=== PATIENT | female | born 1975 | race African-American/Black ===

== ENCOUNTER → 2016-05-26 | Outpatient (CLI) | payer OTHER ==
--- NOTE | 2016-05-26 09:20 | RAD ---
INDICATION:USSNECK/SWELLING NECK LYMPH NODES COMPARISON: None. FINDINGS: Focused ultrasound images are obtained of the left side of the neck. There are some borderline enlarged lymph nodes seen on the left side of the neck with thickened cortex. For example there is one measuring up to 25 x 9 mm IMPRESSION: Multiple borderline enlarged lymph nodes are seen within the left side of the neck. Could be reactive in nature but neoplastic causes are not excluded. A follow-up exam could be obtained in a few weeks to ensure no growth.
== END | disposition home or self-care (01) ==
LOC: US 08:21
PROVIDERS: ATTEND Internal Medicine
DX: R22.1 Localized swelling, mass and lump, neck (principal)
CPT/HCPCS: 76536

== ENCOUNTER → 2016-11-01 | Outpatient (CLI) | payer OTHER ==
--- NOTE | 2016-11-01 09:19 | KCIC ---
EXAM: Neck sonogram. HISTORY: Submandibular lymph node follow-up. TECHNIQUE: Sonographic imaging of the neck was performed. COMPARISON: 05/26/2016. FINDINGS: There are multiple bilateral submandibular lymph nodes, the largest of which on the right measures 2.2 x 2.1 x 1.1 cm and the largest of which on the left measures 2.2 x 2.1 x 0.8 cm. The largest lymph node on the left previously measured 2.5 x 1.5 x 0.9 cm. These lymph nodes demonstrate thickened cortices. IMPRESSION: Enlarged bilateral submandibular lymph nodes with thickened cortices. These are fairly symmetric bilaterally and the largest left lymph node is similar in volume compared to the prior study, allowing for differences in measurement technique. Electronically signed by: Rossy Neal MD (11/01/2016 9:15 AM) [place] [id number]
== END | disposition home or self-care (01) ==
LOC: KCIC US 08:00
PROVIDERS: ATTEND Family Medicine
DX: R59.9 Enlarged lymph nodes, unspecified (principal)
CPT/HCPCS: 76536

== ENCOUNTER 2016-11-27 08:25 | Outpatient (CLI) | payer OTHER ==
[~2016-11-27] VITALS: Ht 172.7 cm; Wt 94.3 kg
[2016-11-27] VITALS (8 sets, daily range): BP systolic 122–140; BP diastolic 81–91
[2016-11-27 09:19] LABS: PROTHROMBIN TIME PATIENT 12.2 SEC (11.7-14.0)
[2016-11-27] MEDS ORDERED: LIDOCAINE 1% / SOD BICARB 8.4% 20 ML VIAL. IJ ONE ×2 (09:52→10:30)
[2016-11-27] MEDS ORDERED: fentaNYL PF VIAL 100 MCG/2 ML VIAL ONE ×2 (10:06→10:24)
[2016-11-27] MEDS ORDERED: MIDAZOLAM HCL/PF 2 MG/2 ML VIAL. ONE (10:06)
[2016-11-27] MEDS ORDERED: MIDAZOLAM HCL/PF 2 MG/2 ML VIAL. IV ONE (10:30)
[2016-11-27] MEDS ORDERED: fentaNYL PF VIAL 100 MCG/2 ML VIAL IV ONE (10:30)
--- NOTE | 2016-11-27 13:37 | RAD ---
Ultrasound-guided biopsy of left submandibular lymph node 11/27/2016 Indication: Persistent left submandibular lymphadenopathy. Discussion: The risks and benefits of the procedure were discussed the patient. Informed consent was obtained. The patient was brought to the IR suite placed in the upright position. A timeout procedure was performed. The left submandibular region was prepped using maximum sterile barrier technique. Ultrasound evaluation demonstrated a noted in the left submandibular region, grossly similar to the appearance is seen on prior ultrasound studies. Once an appropriate site for skin entry been selected 1% lidocaine without epinephrine was administered to the subcutaneous tissues. An automated, 20-gauge core biopsy needle was used to obtain multiple samples, which were divided amongst formalin and RPMI fluid. Manual pressure was held to achieve hemostasis a sterile dressing was applied. Repeat ultrasound demonstrated no evidence of immediate complication. Impression: Technically successful ultrasound-guided biopsy of left submandibular lymph node
--- NOTE | 2016-11-30 08:56 | PATHOLOGY ---
PATHOLOGY REPORT * * * * * * * * FINAL DIAGNOSIS: Left neck lymph node needle biopsy: - Scant segments of fibrous tissue and lymphoid tissue identified. See comment. COMMENT: Sections of the left neck lymph node needle biopsy reveal scant segments of fibrous tissue and lymphoid tissue which primarily consist of fibrous tissue. There is a single small segment of lymphoid tissue. The lymphoid tissue is comprised of a fairly uniform population of small lymphocytes having scant cytoplasm and rounded to slightly irregular hyperchromatic nuclei. There are no lymphoid follicles present. There is no atypical lymphoid large cell infiltrate. There is no evidence of metastatic neoplasm. A portion of the specimen is submitted for marker studies by flow cytometry. The specimen has a viability of 99.6%. T-cells comprise 85% of lymphoid cells and show a CD4/CD8 ratio of about 4.1. NK-cells comprise 1% of lymphoid cells. Mature B-cells comprise 16% of lymphoid cells and are polyclonal with a kappa:lambda ratio of 1.4. To further characterize the lymphoid cells in a tissue architectural context, a limited panel of immunoperoxidase stains is obtained and yields the following results: CD20: subpopulation of small lymphocytes positive PAX-5: subpopulation of small lymphocytes positive similar to CD20 positive lymphoid population CD3: different subpopulation of small lymphocytes positive CD5: subpopulation of small lymphocytes positive similar to CD3 positive lymphoid population; no evidence of CD5 co-expression of small B-lymphocytes Cyclin D-1: few scattered lymphoid cells positive The lymphoid tissue thus is comprised of a mixture of B-cells and T-cells. However, there really is an inadequate amount of tissue for work-up of a lymphoproliferative process. The case is also examined by Dr. Tamika Ly, hematopathologist, who concurs with the diagnosis. (JPM:; 11/29/2016) Special Stains Performed: Immunoperoxidase stains for CD20, PAX-5, CD3, CD5, and Cyclin D-1. REPORT ELECTRONICALLY SIGNED BY: Aníbal Ordonez M.D. DATE/TIME: 11/30/2016 08:56 * * * * * * * * GROSS PATHOLOGY: Received in formalin labeled "Lupe Colmenares, left neck lymph node," are multiple fragmented needle cores of brown soft tissue ranging from less than 0.1 to 0.3 cm in length, which are submitted entirely in cassette A1. A separate specimen consisting of a few small fragmented needle core biopsies are submitted in RPMI. This specimen is forwarded to [facility] for marker studies by flow cytometry. (JPM; 11/27/16) INITIAL CPT CODE(S): A; 92699, 95572, 89094, 16499, 22521, 20749 Professional services performed by [facility] [place] [address] Technical services performed by [facility] at [address] [place] [address], [place] [address]. SPECIMEN(S) RECEIVED: A.Left neck lymph node biopsy CLINICAL HISTORY: Lymph node enlargement PATIENT: LUPE COLEMNARES /AGE: 1103/08/1975 (Age: 41) PATIENT #: [id number] ALT CASE #: SPECIMEN COLLECTION DATE: 11/27/2016 SPECIMEN RECEIVED DATE: 11/27/2016 [facility] - [address] [place] [address] - PHONE: [phone] * * * END OF REPORT * * *
== END 2016-11-27 11:30 | disposition home or self-care (01) ==
LOC: INTRAD 08:25
PROVIDERS: ATTEND Family Medicine
DX: R59.1 Generalized enlarged lymph nodes (principal); E78.00 Pure hypercholesterolemia, unspecified; E66.9 Obesity, unspecified; Z68.41 Body mass index [BMI] 40.0-44.9, adult; K21.9 Gastro-esophageal reflux disease without esophagitis; Z98.51 Tubal ligation status; Z72.0 Tobacco use; Z88.6 Allergy status to analgesic agent; Z88.0 Allergy status to penicillin; Z79.01 Long term (current) use of anticoagulants
CPT/HCPCS: 36415; 38505; 76942; 85610; 88184; 88185; J2250; J3010; 99152; 99153